=== PATIENT | female | born 1970 | race Caucasian/White ===

== ENCOUNTER 2019-09-11 17:15 | Emergency (ER) | payer MEDICAID, OTHER ==
[~2019-09-11] VITALS: Ht 172.7 cm; Wt 81.6 kg
[2019-09-11 17:43] VITALS: BP 120/78
== END 2019-09-11 21:50 | disposition left against medical advice (07) ==
LOC: EDBD 17:15 → EDUNIT# 17:15 → ER 17:19
DX: R22.43 Localized swelling, mass and lump, lower limb, bilateral (principal); Z53.21 Procedure and treatment not carried out due to patient leaving prior to being seen by health care provider
CPT/HCPCS: 93005

== ENCOUNTER 2021-12-03 16:04 | Emergency (ER) | payer MEDICAID ==
[~2021-12-03] VITALS: Ht 170.2 cm; Wt 81.6 kg
[2021-12-03 16:15] VITALS: BP 140/91
[2021-12-03] MEDS ORDERED: MECLIZINE HCL 25 MG TAB PO ONE (18:30)
[2021-12-04] MEDS ORDERED: SUMA50TA2 PO (03:01)
== END 2021-12-04 01:19 | disposition left against medical advice (07) ==
LOC: ER 16:04 → EDSEX 16:04 → EDBD 16:04 → ER 12-04 01:19
DX: R51.9 Headache, unspecified (principal); H93.11 Tinnitus, right ear
CPT/HCPCS: 70450; 93005

== ENCOUNTER 2024-06-19 14:13 | Emergency (ER) | payer MEDICAID ==
[~2024-06-19] VITALS: Ht 165.1 cm; Wt 80.0 kg
[~2024-06-19 14:13] MED LIST: SUMA50TA2 PO
[2024-06-19 14:58] VITALS: BP 144/74; PULSE 96; RESP 18; O2SAT 98
[2024-06-19 15:50] LABS: Basophils # (auto) 0.1 10 ^3/uL (0-0.2); Basophils % (auto) 0.9 % (0.0-2.0); Eosinophils # (auto) 0.1 10 ^3/uL (0-0.8); Eosinophils % (auto) 1.7 % (0.0-7.0); Hematocrit 40.5 % (36.0-46.0); Hemoglobin 13.9 g/dL (12.2-16.2); Lymphocytes # (auto) 3.5 10 ^3/uL (0.4-5.4); Lymphocytes % (auto) 40.2 % (10.0-50.0); Mean Corpuscular Hemoglobin 29.7 pg (28.0-32.0); Mean Corpuscular Hgb Conc. 34.3 g/dL (32.0-36.0); Mean Corpuscular Volume 86.7 fL (80.0-100.0); Monocytes # (auto) 0.5 10 ^3/uL (0-1.3); Monocytes % (auto) 5.8 % (0.0-12.0); Neutrophils # (auto) 4.5 10 ^3/uL (1.6-8.6); Neutrophils % (auto) 51.4 % (37.0-80.0); Nucleated Red Blood Cells % 0.2 %; Red Blood Cells 4.66 10^6/uL (4.0-5.20); White Blood Cell 8.7 10^3/uL (4.4-10.8)
[2024-06-19 16:08] LABS: Alanine Aminotransferase 25 U/L (7-40); Albumin 4.6 g/dL (3.2-4.8); Alkaline Phosphatase 104 U/L (46-116); Anion Gap 5 (5-15); Aspartate Aminotransferase 13 U/L (13-40); BUN/Creatinine Ratio 10.8 (10.0-20.0); Bilirubin, Total 0.4 mg/dL (0.2-1.0); Blood Urea Nitrogen 9 mg/dL (9-23); Calcium 10.4 mg/dL (8.7-10.4); Carbon Dioxide 29 mmol/L (20-30); Chloride 105 mmol/L (98-107); Glucose 107 mg/dL (74-106); Potassium 3.9 mmol/L (3.5-5.1); Sodium 139 mmol/L (136-145)
[2024-06-19 16:09] LABS: Total Protein 7.2 g/dL (5.7-8.2)
== END 2024-06-19 18:41 | disposition left against medical advice (07) ==
LOC: ER 14:13 → EDUNIT# 14:13 → EDBD 14:13 → ER 18:41
DX: H53.2 Diplopia (principal); I10 Essential (primary) hypertension; R07.9 Chest pain, unspecified; H53.8 Other visual disturbances
CPT/HCPCS: 36415; 70450; 71045; 80053; 84484; 85025

== ENCOUNTER 2024-06-25 04:17 | Emergency (ER) | payer MEDICAID ==
[~2024-06-25] VITALS: Ht 172.7 cm; Wt 85.0 kg
[2024-06-25 04:17] VITALS: BP 155/92; PULSE 94; RESP 15; TEMP 98.8; O2SAT 98
[2024-06-25] MEDS: KETOROLAC TROMETH 60MG/2ML VIAL IM ONE (05:17)
[2024-06-25] MEDS ORDERED: IBU600T PO (05:17)
[2024-06-25] MEDS: HYDROcodone-ACET 5/325MG TAB PO ONE (05:46)
== END 2024-06-25 05:56 | disposition home or self-care (01) ==
LOC: ER 04:17 → EDBD 04:17 → ER 05:56
DX: S33.5XXA Sprain of ligaments of lumbar spine, initial encounter (principal); M54.16 Radiculopathy, lumbar region; I10 Essential (primary) hypertension; Z79.899 Other long term (current) drug therapy; X58.XXXA Exposure to other specified factors, initial encounter; Y93.89 Activity, other specified; Y92.89 Other specified places as the place of occurrence of the external cause; Y99.8 Other external cause status
CPT/HCPCS: 96372; 99283; J1885

== ENCOUNTER 2024-12-05 18:59 | Emergency (ER) | payer MEDICAID, OTHER ==
[~2024-12-05] VITALS: Ht 162.6 cm; Wt 80.0 kg
[~2024-12-05 18:59] MED LIST changes: +IBU600T PO
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
[2024-12-05 23:49] VITALS: BP 147/52; PULSE 75; RESP 16; TEMP 98.3; O2SAT 98
== END 2024-12-05 23:52 | disposition home or self-care (01) ==
LOC: EDBD 18:59 → ER 18:59
DX: S09.8XXA Other specified injuries of head, initial encounter (principal); H92.01 Otalgia, right ear; M25.512 Pain in left shoulder; I10 Essential (primary) hypertension; Z79.899 Other long term (current) drug therapy; Y04.8XXA Assault by other bodily force, initial encounter; Y93.89 Activity, other specified; Y92.89 Other specified places as the place of occurrence of the external cause; Y99.8 Other external cause status
CPT/HCPCS: 70450; 73030